=== PATIENT | male | born 1960 | race Caucasian/White ===

== ENCOUNTER 2020-09-18 06:34 | Day surgery (SDC) | payer OTHER ==
[2020-09-18] VITALS (11 sets, daily range): BP systolic 106–123; BP diastolic 61–81; PULSE 65–73; TEMP 98.3
[~2020-09-18] VITALS: Ht 170.2 cm; Wt 96.9 kg
[~2020-09-18 06:34] MED LIST: ALDACTONE100 MG PO; B-121000 MCG PO; FERROUS SU325 MG/TAB PO; LASIX 20MG TABL20 MG PO; LEVAQUIN 250MG250 MG PO; LEVAQUIN 750MG750 MG PO; LEVAQUIN500 MG PO; MVI PO; PRILOSEC 20MG20 MG PO; VITAMIN C500 MG PO; VITAMIN E28000 IU TP; XIFAXAN200 MG PO; ZESTRIL PO; [UNRECOGNIZED DRUG - CODE] PO
[2020-09-18 07:44] LABS: MEAN CELL VOLUME 89 fl (80.0-100.0); MEAN CORPUSCULAR HGB CONC 32 g/dl (33.0-37.0); MEAN PLATELET VOLUME 10.5 fl (7.4-10.4); PLATELET COUNT 162 K/mm3 (130-400); RED BLOOD COUNT 3.28 M/mm3 (4.20-5.60); REDCELL DISTRIBUTION WIDTH-CV 14.1 % (11.5-14.5)
[2020-09-18 07:49] LABS: HEMATOCRIT 29.1 % (42.0-52.0); HEMOGLOBIN 9.4 g/dl (13.5-18.0); MEAN CORPUSCULAR HEMOGLOBIN 29 pg (27.0-31.0)
[2020-09-18 07:50] LABS: INR 1.1 (0.8-3.0); PROTHROMBIN TIME 12.3 SECONDS (9.7-12.8)
[2020-09-18 07:53] LABS: PARTIAL THROMBOPLASTIN TIME 31.5 SECONDS (26.0-37.0)
[2020-09-18 07:59] LABS: CALCIUM 8.2 mg/dL (8.4-10.2); CREATININE, serum 4.31 (0.66-1.25); POTASSIUM 4.4 mmol/L (3.4-5.0)
[2020-09-18] MEDS ORDERED: CYCLOSPORINE25 MG PO (08:21)
[2020-09-18] MEDS ORDERED: CELLCEPT 250MG250 MG PO (08:24)
[2020-09-18] MEDS ORDERED: CRESTOR 10MG10 MG PO (08:25)
[2020-09-18] MEDS ORDERED: [UNRECOGNIZED DRUG - OTHER] PO (08:27)
[2020-09-18] MEDS ORDERED: NATURE'S BLEND600 M2 PO (08:30)
[2020-09-18] MEDS ORDERED: VITAMINC1000TA PO (08:32)
[2020-09-18] MEDS ORDERED: VITAMIN D31000 I1 PO (08:33)
[2020-09-18] MEDS ORDERED: PHARMASSURE ZIN50 MG PO (08:35)
[2020-09-18] MEDS ORDERED: ZYLOPRIM 300MG300 MG PO (08:36)
--- NOTE | 2020-09-18 08:55 | NUR ---
SEE MERGE DOCUMENTATION FOR MEDICATION ADMINISTRATION AND INTRA/POST PROCEDURE SEDATION ASSESSMENTS.
--- NOTE | 2020-09-18 13:40 | NUR ---
All air released from band in 2-3 ml incriments.No bleeding observed at site.
--- NOTE | 2020-09-18 13:57 | NUR ---
Discharge instructions gien to pt.Pt verbalizes understanding.INT removed,cathetr tip intact.Pt escorted out via wheelchair by this nurse.
== END 2020-09-18 14:31 ==
LOC: COL.CAR 06:34
PROVIDERS: Internal Medicine Cardiovascular Disease
DX: I13.10 Hypertensive heart and chronic kidney disease without heart failure, with stage 1 through stage 4 chronic kidney disease, or unspecified chronic kidney disease (principal); N18.4 Chronic kidney disease, stage 4 (severe); R06.09 Other forms of dyspnea; E78.5 Hyperlipidemia, unspecified; Z20.822 Contact with and (suspected) exposure to COVID-19; Z79.899 Other long term (current) drug therapy; Z94.4 Liver transplant status
CPT/HCPCS: J1644; J2250; J3010; J7030; Q9967